=== PATIENT | male | born 1930 | race Caucasian/White ===

== ENCOUNTER 2020-05-22 15:18 | Emergency (ER) | payer MEDICARE, OTHER ==
[2020-05-22] MEDS ORDERED: CEPHALEXIN500 M1 PO (17:27)
== END 2020-05-22 17:55 | disposition home or self-care (01) ==
LOC: FER 15:18
DX: S61.011A Laceration without foreign body of right thumb without damage to nail, initial encounter (principal); S61.212A Laceration without foreign body of right middle finger without damage to nail, initial encounter; T14.8XXA Other injury of unspecified body region, initial encounter; I10 Essential (primary) hypertension; Z88.8 Allergy status to other drugs, medicaments and biological substances; V86.99XA Unspecified occupant of other special all-terrain or other off-road motor vehicle injured in nontraffic accident, initial encounter; Y92.009 Unspecified place in unspecified non-institutional (private) residence as the place of occurrence of the external cause